=== PATIENT | female | born 1950 | race Caucasian/White ===

== ENCOUNTER 2017-05-15 23:59 | Emergency (ER) | payer MEDICARE, OTHER ==
--- NOTE | ~2017-05-15 | EKG ---
PATIENT: ERNESTO MARTINEZ UNIT #: [id number] Ventricular Rate: 90 BPM Atrial Rate: 90 BPM P-R Interval: 224 ms QRS Duration: 88 ms Q-T Interval: 368 ms QTC Calculation(Bezet): 450 ms P [place]: 77 degrees Calculated R [place]: 71 degrees Calculated T [place]: 70 degrees Diagnosis Line: Sinus rhythm with 1st degree A-V block Diagnosis Line: Otherwise normal ECG Diagnosis Line: No previous ECGs available Diagnosis Line: Confirmed by LUIS ENRIQUE MORRISON MD ([id number]) on Diagnosis Line: 05/17/2017 7:31:04 AM INTERPRETING MD: TAMIKO RUGGIERO
--- NOTE | ~2017-05-15 | CR72 ---
[facility] A Service of [facility] RADIOLOGY TEXT RESULTS PATIENT: ERNESTO MARTINEZ LOCATION: [facility] : 46 UNIT #: [id number] AGE: [address]: Garrick Mackey MD SEX: F ORDER DR: [id number] [address] [id number] [id number] MR#: [id number] Acc #: [id number] NAME: ERNESTO MARTINEZ : 1950 SEX: F STUDY DATE/TIME: 05/16/2017 0:36 UNIT: PRITESH ROOM: STUDY DESCRIPTION: CR Chest Single View Portable Attending Physician: Garrick Mackey M.D. Ordering Physician: Isidro Dunne M.D. Primary Care Physician: No Primary Care Physician MEDICAL IMAGING REPORT This report is preliminary unless electronic signature is present EXAM Portable chest. INDICATIONS Shortness of air, weakness today. PROCEDURE Frontal view chest. COMPARISON None. FINDINGS Heart size within normal limits. No dense consolidation, pleural fluid or pneumothorax. There is an ill defined, but somewhat nodular, opacity in the left lung base that measures 1.2 cm. IMPRESSION 1. No dense consolidation. 2. Possible 1.2 cm nodular density in the left lung base could represent a subtle infiltrate or true nodule. Could also represent atelectasis or scarring. Correlate with clinical suspicion and either short-interval followup or chest CT. Dictated by... Dustin Wells M.D. THIS IS AN ELECTRONICALLY VERIFIED REPORT Dustin Wells M.D. at 05/16/2017 9:53 PM EED/pc TD: 05/16/2017 10:08 JOB #: [id number] [facility] A Service of [facility] RADIOLOGY TEXT RESULTS PATIENT: ERNESTO MARTINEZ LOCATION: [facility] : 46 UNIT #: [id number] AGE: [address]: Garrick Mackey MD SEX: F ORDER DR: MEDICAL IMAGING REPORT Page 1 of 1 COPY
[~2017-05-15 23:59] MED LIST: VICODIN ES 7.51 EACH PO
[2017-05-16 01:36] LABS: BASOPHIL% 0.1 % (0-2.5); EOSINOPHIL% 0.1 % (0.0-7.0); HEMATOCRIT 39.6 % (35.0-45.0); HEMOGLOBIN 12.6 gm/dL (12.0-16.0); LYMPHOCYTE% 26.6 % (17.0-45.0); MEAN CELL VOLUME 84.4 FL (83-96); MEAN CORPUSCULAR HEMOGLOBIN 26.7 PG (28-34); MEAN CORPUSCULAR HGB CONC 31.7 g/dL (30-36); MEAN PLATELET VOLUME 9.4 FL (6.5-11.5); MONOCYTE# 0.3 X10e3 (0-1.0); NEUTROPHIL# 2.4 X10e3 (1.5-7.1); NEUTROPHIL% 65.2 % (40-75); PLATELET COUNT 128 X10e3 (140-420); RED BLOOD COUNT 4.69 X10e (3.90-5.30); RED CELL DISTRIBUTION WIDTH 14.8 % (11.0-15.5); WHITE BLOOD COUNT 3.7 X10e3 (4.0-10.5)
[2017-05-16 01:40] LABS: DIFF IND NO
[2017-05-16 02:09] LABS: BILIRUBIN, DIRECT 0.1 mg/dL (0.0-0.2); BILIRUBIN,INDIRECT 0.3 mg/dL (0.0-0.9); BILIRUBIN,TOTAL 0.4 mg/dL (0.2-2.0); BUN/CREATININE RATIO 33.33; CALCIUM SERUM 8.8 mg/dL (8.4-10.2); CREATININE SERUM 0.6 mg/dL (0.6-1.4); GLOM FILT RATE Estimated 93.7 mL/min (>60); PROTEIN TOTAL SERUM 6.9 g/dL (6.0-8.3)
[2017-05-16 02:14] LABS: POTASSIUM 2.7 mmol/L (3.5-5.1)
[2017-05-16 02:37] LABS: URINE SOURCE CLEAN CATCH
[2017-05-16 02:44] LABS: URINE APPEARANCE CLEAR; URINE BILIRUBIN NEG (NEG); URINE BLOOD NEG (NEG); URINE COLOR YELLOW; URINE GLUCOSE >1000 MG/DL (NEG); URINE KETONE NEG (NEG); URINE LEUKOCYTE ESTERASE NEG (NEG); URINE NITRATE NEG (NEG); URINE PH 5.5 (5-8); URINE PROTEIN NEG (NEG); URINE SPECIFIC GRAVITY 1.029 (1.003-1.035)
[2017-05-16 03:00] LABS: CULTURE INDICATED? NO
== END 2017-05-16 03:25 | disposition home or self-care (01) ==
LOC: CED 23:59
PROVIDERS: Emergency Medicine
DX: E10.649 Type 1 diabetes mellitus with hypoglycemia without coma (principal); E87.6 Hypokalemia; Z88.8 Allergy status to other drugs, medicaments and biological substances; Z88.5 Allergy status to narcotic agent; Z79.899 Other long term (current) drug therapy
CPT/HCPCS: 36415; 71010; 80048; 80076; 81003; 82947; 85025; 93005; 96374; 99291